=== PATIENT | female | born 1995 | race African-American/Black ===

== ENCOUNTER 2022-02-12 06:59 | Emergency (ER) | payer SELFPAY ==
[~2022-02-12] VITALS: Ht 165.1 cm; Wt 55.0 kg
[2022-02-12 07:16] VITALS: BP 140/76
[2022-02-12] MEDS ORDERED: LORAZEPAM 2MG/ML CPJ IM ONE (10:30)
[2022-02-12] MEDS ORDERED: HALOPERIDOL LACTATE 5MG/ML VIAL IM ONE (10:30)
== END 2022-02-12 13:07 | disposition home or self-care (01) ==
LOC: ER 07:16 → EDBD 07:16 → ER 13:07
DX: R46.2 Strange and inexplicable behavior (principal)
CPT/HCPCS: 93005; 99283